=== PATIENT | female | born 1990 | race Caucasian/White ===

== ENCOUNTER 2017-02-02 00:48 | Emergency (ER) | payer OTHER ==
--- NOTE | ~2017-02-02 | CT71 ---
[facility] A Service of [facility] RADIOLOGY TEXT RESULTS PATIENT: JOSEPH JONES LOCATION: EVE : [birth year] UNIT #: [id number] AGE: [address]: Norm Lee PAC SEX: F ORDER DR: [id number] [address] [id number] MR#: [id number] Acc #: [id number] NAME: JOSEPH JONES : 1990 SEX: F STUDY DATE/TIME: 02/02/2017 1:52 UNIT: EVE ROOM: STUDY DESCRIPTION: CT Head Wo Contrast Attending Physician: Norm Lee P.A.-C. Ordering Physician: Norm Lee P.A.-C. Primary Care Physician: Primary Care Physician No MEDICAL IMAGING REPORT This report is preliminary unless electronic signature is present EXAM Noncontrast CT head. DATE: 02/02/2017 HISTORY Headache and vomiting after a section on Tuesday01/28/2017. COMPARISON None. TECHNIQUE This CT exam was performed with one or more of the following radiation dose reduction techniques: automatic exposure control, adjustment of mA and/or kV according to patient size, and iterative reconstruction. FINDINGS No acute intracranial hemorrhage is identified. No midline shift. No evidence of acute or evolving infarct. Paranasal sinuses and mastoid air cells appear clear. No displaced calvarial fracture. IMPRESSION No acute intracranial findings. Dictated by... Iqra Soto M.D. THIS IS AN ELECTRONICALLY VERIFIED REPORT Iqra Soto M.D. at 02/02/2017 9:56 PM [facility] A Service [facility] RADIOLOGY TEXT RESULTS PATIENT: JOSEPH JONES LOCATION: EVE : [birth year] UNIT #: [id number] AGE: [address]: Norm Lee PAC SEX: F ORDER DR: TD: 02/02/2017 05:09 JOB #: [id number] MEDICAL IMAGING REPORT Page 1 of 1 COPY
[2017-02-02 02:31] LABS: BASOPHIL# 0.1 X10e3 (0-0.3); BASOPHIL% 0.5 % (0-2.5); EOSINOPHIL# 0.2 X10e3 (0-0.7); EOSINOPHIL% 2.5 % (0.0-7.0); HEMATOCRIT 35.1 % (35.0-45.0); HEMOGLOBIN 11.6 gm/dL (12.0-16.0); LYMPHOCYTE# 1.2 X10e3 (1.0-3.5); LYMPHOCYTE% 12.6 % (17.0-45.0); MEAN CELL VOLUME 86.9 FL (83-96); MEAN CORPUSCULAR HEMOGLOBIN 28.7 PG (28-34); MEAN CORPUSCULAR HGB CONC 33.1 g/dL (30-36); MEAN PLATELET VOLUME 6.5 FL (6.5-11.5); MONOCYTE# 0.5 X10e3 (0-1.0); MONOCYTE% 4.7 % (3.0-12.0); NEUTROPHIL# 7.9 X10e3 (1.5-7.1); NEUTROPHIL% 79.7 % (40-75); PLATELET COUNT 330 X10e3 (140-420); RED BLOOD COUNT 4.04 X10e (3.90-5.30); RED CELL DISTRIBUTION WIDTH 16.7 % (11.0-15.5); WHITE BLOOD COUNT 9.9 X10e3 (4.0-10.5)
[2017-02-02 02:32] LABS: DIFF IND NO
[2017-02-02 02:56] LABS: ALBUMIN SERUM 2.9 g/dL (3.5-5.0); BILIRUBIN, DIRECT 0.1 mg/dL (0.0-0.2); BILIRUBIN,INDIRECT 0.5 mg/dL (0.0-0.9); BILIRUBIN,TOTAL 0.6 mg/dL (0.2-2.0); CALCIUM SERUM 8.6 mg/dL (8.4-10.2); CREATININE SERUM 0.5 mg/dL (0.6-1.4); GLOM FILT RATE Estimated 131.7 mL/min (>60); POTASSIUM 3.8 mmol/L (3.5-5.1); PROTEIN TOTAL SERUM 6.6 g/dL (6.0-8.3)
== END 2017-02-02 03:40 | disposition home or self-care (01) ==
LOC: CED 00:48
PROVIDERS: Physician Assistant
DX: G97.1 Other reaction to spinal and lumbar puncture (principal); Z88.0 Allergy status to penicillin
CPT/HCPCS: 36415; 70450; 80048; 80076; 85025; 96361; 96374; 96375; 99284; J1200; J1885; J2550